=== PATIENT | female | born 1965 | race Two or more races ===

== ENCOUNTER 2018-12-24 11:59 | Inpatient (IN) | payer OTHER ==
[~2018-12-24] VITALS: Ht 165.1 cm; Wt 65.8 kg
--- NOTE | 2018-12-24 12:22 | NUR ---
PT BIB PRIVATE AMB, CAME FROM [facility] FOR ABNORMAL LABS; PT AOX0, NON-VERBAL. VENT AND TRACHE DEPENDENT, GTUBE IN PLACE, PATENT INTACT, F/C DRAINING YELLOW URINE, NAD NOTED, PENDING ER PROVIDER VILMA
[2018-12-24] MEDS ORDERED: ACETAMINOPHEN 650 MG/SUPP.RECT RC ONE ×2 (12:25→12:30)
[2018-12-24] MEDS ORDERED: MEROPENEM 1 G in IV NS 0.9% 100 ML IV ONE (12:30)
[2018-12-24] MEDS ORDERED: VANCOMYCIN 1 GM in IV D5W 250 ML IV ONE (12:30)
[2018-12-24] MEDS ORDERED: IV NS 0.9% 1,000 ML BAG IV ONE (12:30)
[2018-12-24 12:31] VITALS: BP 164/104
[2018-12-24 12:32] LABS: APPEARANCE,URINE Clear (CLEAR); BASOPHILS # (AUTO) 0.1 /CMM (0.0-0.2); BASOPHILS % (AUTO) 0.4 % (0.0-2.0); BILIRUBIN,URINE Negative (NEGATIVE); BLOOD, URINE Trace-intact Ery/uL (NEGATIVE); COLOR,URINE Yellow (YELLOW); EOSINOPHILS % (AUTO) 0.4 % (0.0-6.0); HEMOGLOBIN 9.7 g/dL (11.5-14.8); KETONES,URINE Negative (NEGATIVE); LEUKOCYTE ESTERASE ,URINE Small (NEGATIVE); NITRITE, URINE Positive (NEGATIVE); PROTEIN,URINE 30 mg/dl (NEGATIVE); UGLUCOSE Negative (NEGATIVE); UROBILINOGEN,URINE 0.2 EU/dL (0.2)
--- NOTE | 2018-12-24 12:34 | NUR ---
RT NOTE RECEIVED PT MECHANICALLY VENTILATED VIA CUFFED TRACHEOSTOMY TUBE. CUFF INFLATED. TRACH TUBE MIDLINE AND SECURE. VENTILATOR SETTINGS ENDORSED BY TRANSPORT RT AC 12 450 40% +5. ALARMS SET PER PROTOCOL AND AUDIBLE. VENT PLUGGED IN TO RED OUTLET. AMBU BAG AT BEDSIDE. NO DISTRESS NOTED AT MOMENT. Addendum: 12/24/18 at 1236 by BRUCE STOKES RT Amended: Links added.
[2018-12-24 12:35] LABS: HEMATOCRIT 29 % (33-45); LYMPHOCYTES # (AUTO) 3.4 /CMM (0.8-4.8); LYMPHOCYTES % (AUTO) 10.9 % (20.0-44.0); MEAN CORPUSCULAR HGB CONC 33 g/dl (31.0-36.0); MEAN CORPUSCULAR VOLUME 88 fL (82-100); MONOCYTES # (AUTO) 1.9 /CMM (0.1-1.30); NEUTROPHILS # (AUTO) 25.9 /CMM (1.8-8.9); NEUTROPHILS % (AUTO) 82.3 % (43.0-81.0); PLATELET COUNT (AUTO) 593 /CMM (150-450); RED BLOOD CELL COUNT(AUTO) 3.32 MIL/uL (4.0-5.2)
[2018-12-24 12:37] LABS: WHITE BLOOD COUNT (AUTO) 31.5 K/uL (4.3-11.0)
[2018-12-24 12:41] LABS: CALCIUM, SERUM 10.3 mg/dL (8.5-10.1); CARBON DIOXIDE 25 mmol/L (21-32); CHLORIDE 97 mmol/L (98-107); GLUCOSE 170 mg/dL (74-106); POTASSIUM 5.3 mmol/L (3.5-5.1); SODIUM SERUM 130 mmol/L (136-145); UREA NITROGEN, BLOOD 68 mg/dL (7-18)
[2018-12-24 12:43] LABS: BACTERIA,URINE Few /HPF (None Seen); SQUAMOUS EPITHELIAL CELL,UR Few /HPF (None Seen); WBC,URINE 50-80 /HPF (0-3)
[2018-12-24 12:47] LABS: ALANINE AMINOTRANSFERASE 25 U/L (12-78); ALBUMIN 1.6 g/dL (3.4-5.0); ALKALINE PHOSPHATASE 365 U/L (46-116); ASPARTATE AMINOTRANSFERASE 30 U/L (15-37); BILIRUBIN,DIRECT 0.2 mg/dL (0.0-0.2); BILIRUBIN,TOTAL 0.5 mg/dL (0.2-1.0); TOTAL PROTEIN, SERUM 7.3 g/dL (6.4-8.2)
[2018-12-24] MEDS ORDERED: LOSA50TA39 GT (12:49)
[2018-12-24] MEDS ORDERED: MULT-447 GT (12:49)
[2018-12-24] MEDS ORDERED: OMEP20CA10 GT (12:49)
[2018-12-24] MEDS ORDERED: BLOO-668 IN (12:49)
[2018-12-24] MEDS ORDERED: NPH,100V2 SQ (12:49)
[2018-12-24] MEDS ORDERED: HYDR-4075 GT (12:49)
[2018-12-24] MEDS ORDERED: NUT.237L30 GT (12:49)
[2018-12-24] MEDS ORDERED: CYAN-24 GT (12:49)
[2018-12-24] MEDS ORDERED: HEPA50008 SQ (12:49)
[2018-12-24] MEDS ORDERED: MAGN400O6 GT (12:49)
[2018-12-24] MEDS ORDERED: CLON1TAB GT (12:49)
[2018-12-24] MEDS ORDERED: VIT500LI GT (12:49)
[2018-12-24] MEDS ORDERED: TRAM50TA2 GT (12:49)
[2018-12-24] MEDS ORDERED: IPRA3AMP23 IH ×2 (12:49)
[2018-12-24] MEDS ORDERED: ARGI1POW13 GT (12:49)
[2018-12-24] MEDS ORDERED: INSU100V3 SQ (12:49)
[2018-12-24] MEDS ORDERED: FOLI1TAB16 GT (12:49)
[2018-12-24] MEDS ORDERED: ZINC220C8 GT (12:49)
[2018-12-24] MEDS ORDERED: FURO-144 GT (12:49)
[2018-12-24] MEDS ORDERED: NA P133E RC (12:49)
[2018-12-24] MEDS ORDERED: AMIN30LI27 GT (12:49)
[2018-12-24] MEDS ORDERED: FERR300L GT (12:49)
[2018-12-24] MEDS ORDERED: BISA10SU8 RC (12:49)
[2018-12-24] MEDS ORDERED: SACC250C GT (12:49)
[2018-12-24] MEDS ORDERED: DOCU50LI GT (12:49)
[2018-12-24] MEDS ORDERED: LEVE100S GT (12:49)
[2018-12-24] MEDS ORDERED: NPH,100I SQ (12:49)
--- NOTE | 2018-12-24 12:49 | NUR ---
GARY MOSLEY NP ON-CALL.
--- NOTE | 2018-12-24 12:58 | NUR ---
CALLED NURSING SUP. FOR TELE BED.
--- NOTE | 2018-12-24 13:09 | NUR ---
SPOKE WITH [facility]. PATIENT IS WITH [facility]. CALLED DR. REYES AND TRANSFERED TO DR. SOLANO.
--- NOTE | 2018-12-24 13:24 | NUR ---
TELE BED 111-1
[2018-12-24 13:43] LABS: BAND % (MANUAL) 4 % (0.0-5.0); LYMPHOCYTES % (MANUAL) 3 % (16-48); MONOCYTES % (MANUAL) 10 % (0-11.0); NEUTROPHILS % (MANUAL) 83 (42-76)
--- NOTE | 2018-12-24 14:03 | NUR ---
REPORT GIVEN TO TOM DIAS FOR FERNANDO
[2018-12-24] MEDS ORDERED: MAGNESIUM HYDROXIDE 30 ML UDC GT PRN (14:30)
[2018-12-24] MEDS ORDERED: NA PHOS,M-B/NA PHOS,DI-BA 1 EA ENEMA RC PRN (14:30)
[2018-12-24] MEDS ORDERED: hydrALAZINE HCL 10 MG TABLET GT PRN (14:30)
[2018-12-24] MEDS ORDERED: BISACODYL SUPP (10 MG) 10 MG/SUPP.RECT SUPP.RECT RC PRN (14:30)
[2018-12-24] MEDS ORDERED: FEE PK DOSING 1 MIN EA MC ONE (15:40)
--- NOTE | 2018-12-24 15:51 | NUR ---
TRANSFERRED TO [facility] 1ST FLOOR VIA ACLS PROTOCOL
[2018-12-24] MEDS: IV 1/2NS 1000 ML 1,000 ML IV PRN (15:52)
[2018-12-24 16:00] VITALS: BP 120/76
[2018-12-24] MEDS ORDERED: DEXTROSE 50%-WATER 50 ML DISP.SYRIN IV PRN (16:00)
--- NOTE | 2018-12-24 16:00 | NUR ---
BOAT CLEANING SUPERVISOR NOTE PATIENT CAME IN FROM THE ER VIA GURNEY, OBTUNDED. HAS A BOATENG BY GRAVITY WITH YELLOW AND CLEAR URINE. HAS A RIGHT FOREARM IV SL. INTACT FLUSHED AND PATENT. HAS GT, CLAMPED. HAS SKIN ISSUES AND WILL ORDER WOUND CONSULT. BED LOCKED AND ON LOWEST POSITION. WILL CONTINUE TO MONITOR.
[2018-12-24] MEDS: PROSOURCE / PROSTAT (PYXIS) 30 ML UDC GT SCH (16:17)
[2018-12-24] MEDS: LACTOBACILLUS RHAMNOSUS GG 1 EACH CAP.SPRINK GT SCH (16:36)
[2018-12-24] MEDS: clonazePAM 1 MG TABLET GT SCH (16:37)
[2018-12-24] MEDS: GLUCERNA 1.2 1,000 ML BOTTLE GT SCH (16:53)
[2018-12-24] MEDS ORDERED: DOCUSATE SODIUM LIQ 100 MG/10 ML UDC GT SCH (17:00)
[2018-12-24] MEDS: TRAMADOL HCL 50 MG TABLET GT SCH (17:00)
[2018-12-24] MEDS ORDERED: Medication Not On Formulary EA (Arginine/Ascorbate Sod/Vite AC (Arginaid Powder) 1 EACH) GT SCH (17:00)
[2018-12-24] MEDS: LOSARTAN POTASSIUM 50 MG TABLET GT SCH (17:03)
--- NOTE | 2018-12-24 17:23 | NUR ---
RN NOTE: CALLED AND SPOKE WITH DR. REYES AND MADE HIM AWARE THAT ON THE PATIENT'S MEDICAL RECORDS FROM [facility] SHE HAS A HISTORY OF C. DIFF ON 12/03/18. PER JAGDEEP SORTO, ORDER, NOTED AND CARRIED OUT.
[2018-12-24] MEDS: FERROUS SULFATE UDC 300 MG/5 ML UDC GT SCH (17:37)
[2018-12-24 18:16] VITALS: BP 120/76
[2018-12-24] MEDS: BLOOD SUGAR DIAGNOSTIC 1 EACH STRIP IN SCH ×2 (18:38→23:18)
[2018-12-24] MEDS: PIPERACILLIN /TAZOBACTAM 3.375 G in IV D5W 50 ML IV SCH ×2 (18:38→23:30)
[2018-12-24] MEDS: INSULIN REGULAR, HUMAN 100 UNIT/ML 3 ML VIAL SQ PRN ×2 (18:42→23:32)
[2018-12-24] MEDS ORDERED: ALBUTEROL FS 2.5 MG/0.5 ML VIAL.NEB NEB PRN (19:30)
[2018-12-24] MEDS: INSULIN NPH, HUMAN ISOPHANE 100 UNIT/ML VIAL SQ SCH (19:44)
[2018-12-24] MEDS: ALBUTEROL FS 2.5 MG/0.5 ML VIAL.NEB NEB SCH (19:58)
[2018-12-24 20:00] VITALS: BP 104/60
[2018-12-24] MEDS: VANCOMYCIN 0.75 GM in IV D5W 250 ML IV SCH (20:17)
[2018-12-24] MEDS: LEVETIRACETAM SOL (5 ML) 100 MG/ML UDC GT SCH (20:17)
[2018-12-24] MEDS: HEPARIN SODIUM, PORCINE 5000 UNITS/1 ML VIAL SQ SCH (20:18)
[2018-12-25] VITALS: BP 122/63
[2018-12-25] MEDS: ALBUTEROL FS 2.5 MG/0.5 ML VIAL.NEB NEB SCH ×4 (01:31→20:03)
[2018-12-25] MEDS: IV 1/2NS 1000 ML 1,000 ML IV PRN ×2 (03:53→16:46)
[2018-12-25 04:00] VITALS: BP 125/75
[2018-12-25] MEDS: VANCOMYCIN 0.75 GM in IV D5W 250 ML IV SCH ×2 (04:00→12:25)
[2018-12-25] MEDS: PIPERACILLIN /TAZOBACTAM 3.375 G in IV D5W 50 ML IV SCH ×3 (05:02→17:24)
[2018-12-25] MEDS: BLOOD SUGAR DIAGNOSTIC 1 EACH STRIP IN SCH ×3 (05:10→17:41)
[2018-12-25] MEDS: INSULIN NPH, HUMAN ISOPHANE 100 UNIT/ML VIAL SQ SCH ×2 (05:11→17:43)
[2018-12-25] MEDS: INSULIN REGULAR, HUMAN 100 UNIT/ML 3 ML VIAL SQ PRN (05:13)
[2018-12-25 07:16] LABS: BASOPHILS # (AUTO) 0.1 /CMM (0.0-0.2); BASOPHILS % (AUTO) 0.4 % (0.0-2.0); EOSINOPHILS % (AUTO) 1.7 % (0.0-6.0); HEMATOCRIT 23 % (33-45); HEMOGLOBIN 7.6 g/dL (11.5-14.8); LYMPHOCYTES # (AUTO) 2.9 /CMM (0.8-4.8); LYMPHOCYTES % (AUTO) 11.5 % (20.0-44.0); MEAN CORPUSCULAR HGB CONC 33 g/dl (31.0-36.0); MEAN CORPUSCULAR VOLUME 87 fL (82-100); MONOCYTES # (AUTO) 1.3 /CMM (0.1-1.30); MONOCYTES % (AUTO) 5.3 % (2.0-12.0); NEUTROPHILS # (AUTO) 20.4 /CMM (1.8-8.9); NEUTROPHILS % (AUTO) 81.1 % (43.0-81.0); PLATELET COUNT (AUTO) 458 /CMM (150-450); RED BLOOD CELL COUNT(AUTO) 2.65 MIL/uL (4.0-5.2); WHITE BLOOD COUNT (AUTO) 25.2 K/uL (4.3-11.0)
[2018-12-25 07:24] LABS: CALCIUM, SERUM 9.1 mg/dL (8.5-10.1); CREATININE 0.9 mg/dL (0.6-1.3)
[2018-12-25 07:30] LABS: BILIRUBIN,TOTAL 0.3 mg/dL (0.2-1.0); TOTAL PROTEIN, SERUM 5.9 g/dL (6.4-8.2)
[2018-12-25] MEDS ORDERED: PANTOPRAZOLE 40 MG TABLET.DR PO SCH (07:30)
--- NOTE | 2018-12-25 07:30 | NUR ---
RN OPENING NOTES RECEIVED PATIENT ON BED OBTUNDED. ON GT 55ML/HR. NO RESIDUAL. ON IV FLUIDS. INTACT PATENT AND SALINE FLUSHED. ON BOATENG GRAVITY. WITH CLEAR AND YELLOW URINE. PT ON VENT SATING 100% NO SIGNS OF ANY DISCOMFORT. BED LOCKED AND LOWEST POSITION. WILL CONT TO MONITOR.
[2018-12-25 07:32] LABS: ALBUMIN 1.3 g/dL (3.4-5.0)
--- NOTE | 2018-12-25 07:55 | NUR ---
RT PT RECEIVED WITH A [employer] 8 TRACH ON THE VENT WITH NOTED SETTINGS. PT IS AWAKE BUT DOES NOT FOLLOW COMMANDS. VENT ALARMS ARE SET AND AUDIBLE WITH BVM BY BEDSIDE. MAINTENANCE SPECIALIST CUFF PRESSURE NOTED. VENT IS PLUGGED INTO RED OUTLET. SX'D MODERATE THICK YELLOW SECRETIONS. NO RESPIRATORY DISTRESS NOTED AT THIS TIME, WILL CONTINUE TO MONITOR. Addendum: 12/25/18 at 1803 by TE BERNAL RT Amended: Links added.
[2018-12-25 08:00] VITALS: BP 105/60
[2018-12-25] MEDS: ZINC SULFATE 220 MG CAPSULE GT SCH (08:58)
[2018-12-25] MEDS: FOLIC ACID 1 MG TABLET GT SCH (08:59)
[2018-12-25] MEDS: MULTIVIT W/MINERALS 1 TAB TABLET GT SCH (08:59)
[2018-12-25] MEDS: LACTOBACILLUS RHAMNOSUS GG 1 EACH CAP.SPRINK GT SCH ×2 (08:59→16:21)
[2018-12-25] MEDS: clonazePAM 1 MG TABLET GT SCH ×3 (09:00→16:22)
[2018-12-25] MEDS: LOSARTAN POTASSIUM 50 MG TABLET GT SCH ×2 (09:00→16:22)
[2018-12-25] MEDS: TRAMADOL HCL 50 MG TABLET GT SCH ×3 (09:01→16:24)
[2018-12-25] MEDS: ASCORBIC ACID 500 MG TABLET GT SCH (09:01)
[2018-12-25] MEDS: CYANOCOBALAMIN 500 MCG TABLET GT SCH (09:01)
[2018-12-25] MEDS: FERROUS SULFATE UDC 300 MG/5 ML UDC GT SCH ×3 (09:02→16:21)
[2018-12-25] MEDS: LEVETIRACETAM SOL (5 ML) 100 MG/ML UDC GT SCH ×2 (09:02→20:33)
[2018-12-25] MEDS: HEPARIN SODIUM, PORCINE 5000 UNITS/1 ML VIAL SQ SCH ×2 (09:14→20:34)
--- NOTE | 2018-12-25 09:20 | NUR ---
WOUND CARE CONSULT: PT INCONTINENT OF LARGE AMOUNT OF LIQUID MALODOROUS STOOL, PRESENT ON ADMISSION. PT ALSO NOTED TO HAVE MULTIPLE WOUNDS AND SKIN ISSUES, PRESENT ON ADMISSION INCLUDING UNSTAGEABLE SACRAL ULCER, LEFT EAR DRY ESCHAR, RT EAR SCAR, LEFT HEEL SCAR, RT HEEL INTACT DEEP TISSUE INJURY AND LEFT LATERAL LOWER LEG INTACT DEEP TISSUE INJURY. RECOMMEND SURGICAL CONSULT FOR SACRAL ULCER. RECOMMENDATIONS MADE FOR WOUND CARE AND SKIN PROTECTION. DISCUSSED WITH NURSING STAFF. PT ON [facility] LOW AIRLOSS BED. WILL SEE PRN. SORTO IN AGREEMENT WITH PLAN OF CARE. CURRENT CHUCKY SCORE IS 9. PT IS VENT-DEPENDENT. Addendum: 12/25/18 at 0923 by JOYCELYN SKELTON WNDNU Amended: Links added.
[2018-12-25] MEDS ORDERED: Z GUARD REMEDY 2 OZ OINT TP PRN (09:30)
[2018-12-25] MEDS: PROSOURCE / PROSTAT (PYXIS) 30 ML UDC GT SCH (10:30)
--- NOTE | 2018-12-25 10:44 | NUR ---
RN NOTE: CLARIFIED WITH DR. REYES RE: THE PROTONIX ORDER. MD WITH NEW ORDER, NOTED AND CARRIED OUT.
[2018-12-25] MEDS: PANTOPRAZOLE 40 MG/PACK PACK GT SCH (11:04)
[2018-12-25 12:00] VITALS: BP 136/76
--- NOTE | 2018-12-25 12:20 | NUR ---
RN NOTE: CALLED AND SPOKE WITH YULIANA FROM THE PHARMACY AND MADE HER AWARE OF THE VANCOMYCIN TROUGH 35. PER YULIANA, HOLD THE DOSE FOR 1300 AND SHE WILL INFORM [facility], PHARMACIST RE: THE PATIENT'S VANCOMYCIN TROUGH.
[2018-12-25] MEDS: DAKINS QUARTER STRENGTH (0.125%) 480 ML BOTTLE TOP SCH (14:07)
[2018-12-25] MEDS: Z GUARD REMEDY 2 OZ OINT TP SCH (14:08)
[2018-12-25 16:00] VITALS: BP 103/56
[2018-12-25] MEDS: VANCOMYCIN HCL 125 MG/2.5 ML ORAL.SUSP GT SCH ×2 (17:45→18:55)
--- NOTE | 2018-12-25 17:45 | NUR ---
RN NOTE: RECEIVED AN ORDER FROM DR. REYES FOR VANCOMYCIN 125 MG GT Q6HR FOR C. DIFF. ORDER, NOTED AND CARRIED OUT. DAUGHTER MADE AWARE.
--- NOTE | 2018-12-25 17:55 | NUR ---
RN NOTE: INFORMED DR. REYES RE: THE SLIGHT RECTAL BLEEDING NOTED ON THE PATIENT. MD WAS ALSO INFORMED OF THE HEMOGLOBIN 7.6 TODAY. PER MD, CONTINUE TO MONITOR AND HE WAS AWARE OF THE HGB THIS MORNING.
[2018-12-25] MEDS: GLUCERNA 1.2 1,000 ML BOTTLE GT SCH (18:42)
--- NOTE | 2018-12-25 19:14 | NUR ---
RN CLOSING NOTE PATIENT ON BED OBTUNDED. ON GT 55ML/HR. NO RESIDUAL. ON IV FLUIDS. INTACT PATENT AND SALINE FLUSHED. ON BOATENG BY GRAVITY. WITH CLEAR AND YELLOW URINE. PT ON VENT SATING 100% NO SIGNS OF ANY DISCOMFORT. INSERTED A RECTAL TUBE DUE TO POSITIVE C DIFF. BED LOCKED AND LOWEST POSITION. WILL CONT TO MONITOR Addendum: 12/25/18 at 1915 by GISELLA WOODS RN BLOOD SUGAR WAS MANAGEABLE THROUGHOUT THE SHIFT. WILL RELAY REPORT TO THE NOC SHIFT
[2018-12-25 20:00] VITALS: BP 140/77
--- NOTE | 2018-12-25 20:00 | NUR ---
RN/TELE NOTES: RECEIVED PT. IN BED W/HOB ELEVATED. OBTUNDED. ON VENT/TRACH DEPENDENT. ON TELE MONITOR W/ ST. W/ GTF INPLACE AND PATENT TOLERATING WELL. NO RESIDUAL NOTED. IVF GOING ON RT. AC PATENT AND INTACT W/ NO S/S OF INFECTION/INFILTRATION NOTED. VANCO TROUGH 31. HELD VANCO DOSE. NO S/S OF FACIAL GRIMACES OR MOANING NOTED. BED LOCKED AND IN LOW POSITION. WILL CONTINUE TO MONITOR. F/C PATENT AND INTACT DRAINING VIA GRAVITY. HAS FLEXISEAL INTACT.
[2018-12-25] MEDS ORDERED: VANCOMYCIN 0.75 GM in IV D5W 250 ML IV SCH (21:00)
[2018-12-25] MEDS: METOPROLOL SUCCINATE 25 MG TAB.SR.24H GT SCH (22:07)
--- NOTE | 2018-12-25 23:36 | NUR ---
RN/TELE NOTES: CALLED DR. REYES REGARDING PT. HEART RATE. W/ NEW ORDERS NOTED AND CARRIED OUT. ALSO CLARIFIED W/ DR. REYES OF VANCO IV AND PO PER DR. REYES CONTINUE BOTH. VANCO TROUGH LEVEL 31. HELD VANCO IV. CHARGE NURSE INFORMED. WILL CONTINUE TO MONITOR.
[2018-12-26] VITALS: BP 134/77
[2018-12-26] MEDS: PIPERACILLIN /TAZOBACTAM 3.375 G in IV D5W 50 ML IV SCH ×2 (00:15→05:40)
[2018-12-26] MEDS: HYDROCODONE/APAP 5/325MG 1 EACH TABLET GT PRN ×2 (00:15→06:24)
[2018-12-26] MEDS: VANCOMYCIN HCL 125 MG/2.5 ML ORAL.SUSP GT SCH ×2 (00:16→05:39)
[2018-12-26] MEDS: BLOOD SUGAR DIAGNOSTIC 1 EACH STRIP IN SCH ×4 (00:26→17:41)
[2018-12-26] MEDS: INSULIN REGULAR, HUMAN 100 UNIT/ML 3 ML VIAL SQ PRN ×2 (00:31→05:35)
[2018-12-26] MEDS: ALBUTEROL FS 2.5 MG/0.5 ML VIAL.NEB NEB SCH ×4 (02:28→19:42)
[2018-12-26 04:00] VITALS: BP 157/78
[2018-12-26] MEDS: IV 1/2NS 1000 ML 1,000 ML IV PRN ×2 (04:45→20:17)
[2018-12-26] MEDS: INSULIN NPH, HUMAN ISOPHANE 100 UNIT/ML VIAL SQ SCH ×2 (05:38→17:50)
[2018-12-26 07:15] LABS: BASOPHILS # (AUTO) 0.1 /CMM (0.0-0.2); BASOPHILS % (AUTO) 0.3 % (0.0-2.0); EOSINOPHILS % (AUTO) 0.6 % (0.0-6.0); HEMATOCRIT 30 % (33-45); LYMPHOCYTES # (AUTO) 4.5 /CMM (0.8-4.8); LYMPHOCYTES % (AUTO) 11.2 % (20.0-44.0); MEAN CORPUSCULAR HGB CONC 33 g/dl (31.0-36.0); MEAN CORPUSCULAR VOLUME 89 fL (82-100); MONOCYTES # (AUTO) 2.1 /CMM (0.1-1.30); MONOCYTES % (AUTO) 5.2 % (2.0-12.0); NEUTROPHILS # (AUTO) 33.2 /CMM (1.8-8.9); NEUTROPHILS % (AUTO) 82.7 % (43.0-81.0); PLATELET COUNT (AUTO) 595 /CMM (150-450)
[2018-12-26 07:27] LABS: CALCIUM, SERUM 9.6 mg/dL (8.5-10.1); CREATININE 0.9 mg/dL (0.6-1.3); POTASSIUM 5.1 mmol/L (3.5-5.1)
--- NOTE | 2018-12-26 07:28 | NUR ---
RN/TELE NOTES: REPORT GIVEN TO NEXT SHIFT NURSE FOR FERNANDO.
--- NOTE | 2018-12-26 07:47 | NUR ---
RT Pt received with a shiley 8 trach on the vent with noted settings. Pt is awake but does not follow commands. Vent is plugged into red outlet. WARP COILER cuff pressure noted. Vent alarms are set and audible with BVM by bedside. HHN tx not given do to tachycardia, TOM Villavicencio notified and aware. Pt sx'd moderate thick pale yellow secretions. No respiratory distress noted at this time, will continue to monitor. Addendum: 12/26/18 at 0836 by TE BERNAL RT Amended: Links added.
[2018-12-26 08:00] VITALS: BP 169/84
[2018-12-26 08:04] LABS: WHITE BLOOD COUNT (AUTO) 40.1 K/uL (4.3-11.0)
--- NOTE | 2018-12-26 08:05 | NUR ---
RN NOTE GOT CALL FROM LAB ABOUT WBC=40.0, DR REYES AT BEDSIDE NOTIFIED ABOUT WBC LEVEL. HE WILL CHECK THE CHART ANF FOLLOW UP.
[2018-12-26 08:42] LABS: BAND % (MANUAL) 1 % (0.0-5.0); LYMPHOCYTES % (MANUAL) 18 % (16-48); MONOCYTES % (MANUAL) 4 % (0-11.0); NEUTROPHILS % (MANUAL) 77 (42-76)
[2018-12-26] MEDS: clonazePAM 1 MG TABLET GT SCH ×3 (08:59→16:33)
[2018-12-26] MEDS: MULTIVIT W/MINERALS 1 TAB TABLET GT SCH (08:59)
[2018-12-26] MEDS: FOLIC ACID 1 MG TABLET GT SCH (08:59)
[2018-12-26] MEDS: LACTOBACILLUS RHAMNOSUS GG 1 EACH CAP.SPRINK GT SCH ×2 (08:59→16:33)
[2018-12-26] MEDS: CYANOCOBALAMIN 500 MCG TABLET GT SCH (08:59)
[2018-12-26] MEDS: LEVETIRACETAM SOL (5 ML) 100 MG/ML UDC GT SCH ×2 (08:59→20:19)
[2018-12-26] MEDS ORDERED: CEFTRIAXONE 1 G in IV D5W 50 ML IV SCH (09:00)
[2018-12-26] MEDS: METOPROLOL SUCCINATE 25 MG TAB.SR.24H GT SCH ×2 (09:00→16:34)
[2018-12-26] MEDS: LOSARTAN POTASSIUM 50 MG TABLET GT SCH ×2 (09:05→16:37)
[2018-12-26] MEDS: ASCORBIC ACID 500 MG TABLET GT SCH (09:05)
[2018-12-26] MEDS: ZINC SULFATE 220 MG CAPSULE GT SCH (09:05)
[2018-12-26] MEDS: PANTOPRAZOLE 40 MG/PACK PACK GT SCH (09:05)
[2018-12-26] MEDS: FERROUS SULFATE UDC 300 MG/5 ML UDC GT SCH ×3 (09:05→16:33)
[2018-12-26] MEDS: HEPARIN SODIUM, PORCINE 5000 UNITS/1 ML VIAL SQ SCH ×2 (09:06→20:21)
[2018-12-26] MEDS: TRAMADOL HCL 50 MG TABLET GT SCH ×3 (09:07→16:35)
[2018-12-26] MEDS: PROSOURCE / PROSTAT (PYXIS) 30 ML UDC GT SCH (09:08)
[2018-12-26] MEDS: Z GUARD REMEDY 2 OZ OINT TP SCH (09:09)
[2018-12-26] MEDS: DAKINS QUARTER STRENGTH (0.125%) 480 ML BOTTLE TOP SCH (09:09)
[2018-12-26 12:00] VITALS: BP 168/85
[2018-12-26] MEDS: ACETAMINOPHEN 650 MG/20.3 ML UDC NG PRN ×2 (12:07→19:20)
--- NOTE | 2018-12-26 13:20 | NUR ---
RT HHN tx not given due to tachycardia, TOM Villavicencio notified and aware. No signs of SOB or respiratory distress noted at this time. Addendum: 12/26/18 at 1459 by TE BERNAL RT Amended: Links added.
[2018-12-26 16:00] VITALS: BP 113/61
[2018-12-26] MEDS: VANCOMYCIN HCL 125 MG/2.5 ML ORAL.SUSP PO SCH (17:41)
[2018-12-26] MEDS: GLUCERNA 1.2 1,000 ML BOTTLE GT SCH (17:59)
[2018-12-26 20:00] VITALS: BP 124/58
--- NOTE | 2018-12-26 20:00 | NUR ---
RN/TELE NOTES: RECEIVED PT. IN BED W/HOB ELEVATED. OBTUNDED. ON VENT/TRACH DEPENDENT. ON TELE MONITOR W/ SR. W/ GTF INPLACE AND PATENT TOLERATING WELL. NO RESIDUAL NOTED. IVF GOING ON LEFT ARM PATENT AND INTACT W/ NO S/S OF INFECTION/INFILTRATION NOTED. VANCO TROUGH DONE AT 2029. WAITING FOR RESULTS. NO S/S OF FACIAL GRIMACES OR MOANING NOTED. BED LOCKED AND IN LOW POSITION. WILL CONTINUE TO MONITOR. F/C PATENT AND INTACT DRAINING VIA GRAVITY. HAS FLEXISEAL INTACT.
--- NOTE | 2018-12-26 22:44 | NUR ---
RN/TELE NOTES: CALLED DR. REYES AT [phone] TO CLARIFY THE ORDERS OF JEANO IV. VANCO TROUGH WAS DONE TODAY AT 2029. PER DR. REYES VANCO IV WAS D/C .
[2018-12-27] VITALS (7 sets, daily range): BP systolic 76–140; BP diastolic 41–79
[2018-12-27] MEDS: BLOOD SUGAR DIAGNOSTIC 1 EACH STRIP IN SCH ×5 (00:49→23:16)
[2018-12-27] MEDS: VANCOMYCIN HCL 125 MG/2.5 ML ORAL.SUSP PO SCH ×5 (00:49→23:18)
[2018-12-27] MEDS: INSULIN REGULAR, HUMAN 100 UNIT/ML 3 ML VIAL SQ PRN ×2 (00:51→12:54)
[2018-12-27] MEDS: ALBUTEROL FS 2.5 MG/0.5 ML VIAL.NEB NEB SCH ×4 (01:21→20:13)
--- NOTE | 2018-12-27 07:05 | NUR ---
RN NOTES: RECEIVED PT ON BED, VENT/TRACH DEPENDENT, TRACH CARE DONE, NO SOB NOTED, TOLERATING CURRENT VENT SETTING WELL, ON TELE SR HR IN 70'S, BOATENG DRAINING TO GRAVITY , FLEXISEAL INTACT AND DRAINING LOOSE STOOL, GLUCERNA AT 55CC/HR RUNNING VIA GT , NO RESIDUAL NOTED, 1/2 NS AT 100CC/HR RUNNING VIA L UPPER ARM MIDLINE , SITE CELAN , DRY AND INTACT, BED LOCKED AND IN LOW POSITION. SR UP x3, CALL LIGHT WITHIN EASY REACH, CONTINUE TO MONITOR .
--- NOTE | 2018-12-27 07:22 | NUR ---
RN/TELE NOTES: BP AT 4 AM 76/41. CALLED DR. REYES X 2 W/ ORDERS TO BOLUS 1 L NS AND IF NOT IMPROVED TO TRANSFER TO ICU. BP 88/43. RECHECK BP 95/49. BP 116/61. PT. IS ON GLUCERNA @ 55 ML/HR. W/ I/2 NS @ 100 ML/HR. NOT IN ANY DISTRESS. REPORT GIVEN TO AM NURSE.
[2018-12-27 07:24] LABS: BASOPHILS # (AUTO) 0.1 /CMM (0.0-0.2); BASOPHILS % (AUTO) 0.1 % (0.0-2.0); CALCIUM, SERUM 8.9 mg/dL (8.5-10.1); CREATININE 1.1 mg/dL (0.6-1.3); EOSINOPHILS % (AUTO) 0.1 % (0.0-6.0); HEMATOCRIT 23 % (33-45); HEMOGLOBIN 7.7 g/dL (11.5-14.8); LYMPHOCYTES # (AUTO) 2.5 /CMM (0.8-4.8); LYMPHOCYTES % (AUTO) 4.8 % (20.0-44.0); MEAN CORPUSCULAR HGB CONC 33 g/dl (31.0-36.0); MEAN CORPUSCULAR VOLUME 88 fL (82-100); MONOCYTES # (AUTO) 1.7 /CMM (0.1-1.30); MONOCYTES % (AUTO) 3.3 % (2.0-12.0); NEUTROPHILS # (AUTO) 47.2 /CMM (1.8-8.9); NEUTROPHILS % (AUTO) 91.7 % (43.0-81.0); PLATELET COUNT (AUTO) 481 /CMM (150-450); POTASSIUM 4.6 mmol/L (3.5-5.1); RED BLOOD CELL COUNT(AUTO) 2.64 MIL/uL (4.0-5.2)
[2018-12-27 07:35] LABS: WHITE BLOOD COUNT (AUTO) 51.5 K/uL (4.3-11.0)
[2018-12-27] MEDS: FERROUS SULFATE UDC 300 MG/5 ML UDC GT SCH ×3 (08:46→16:39)
[2018-12-27] MEDS: ZINC SULFATE 220 MG CAPSULE GT SCH (08:46)
[2018-12-27] MEDS: LEVETIRACETAM SOL (5 ML) 100 MG/ML UDC GT SCH ×2 (08:46→20:27)
[2018-12-27] MEDS: CYANOCOBALAMIN 500 MCG TABLET GT SCH (08:47)
[2018-12-27] MEDS: METOPROLOL SUCCINATE 25 MG TAB.SR.24H GT SCH ×2 (08:47→16:51)
[2018-12-27] MEDS: FOLIC ACID 1 MG TABLET GT SCH (08:47)
[2018-12-27] MEDS: PANTOPRAZOLE 40 MG/PACK PACK GT SCH (08:48)
[2018-12-27] MEDS: ASCORBIC ACID 500 MG TABLET GT SCH (08:48)
[2018-12-27] MEDS: LACTOBACILLUS RHAMNOSUS GG 1 EACH CAP.SPRINK GT SCH ×2 (08:48→16:39)
[2018-12-27] MEDS: clonazePAM 1 MG TABLET GT SCH ×3 (08:48→16:39)
[2018-12-27] MEDS: TRAMADOL HCL 50 MG TABLET GT SCH ×3 (08:48→16:40)
[2018-12-27] MEDS: MULTIVIT W/MINERALS 1 TAB TABLET GT SCH (08:48)
[2018-12-27] MEDS: HEPARIN SODIUM, PORCINE 5000 UNITS/1 ML VIAL SQ SCH ×2 (08:49→20:29)
[2018-12-27 08:52] LABS: BAND % (MANUAL) 8 % (0.0-5.0); EOSINOPHILS % (MANUAL) 1 % (0-4); LYMPHOCYTES % (MANUAL) 4 % (16-48); MONOCYTES % (MANUAL) 4 % (0-11.0); NEUTROPHILS % (MANUAL) 83 (42-76)
[2018-12-27] MEDS: LOSARTAN POTASSIUM 50 MG TABLET GT SCH (08:53)
[2018-12-27] MEDS: INSULIN NPH, HUMAN ISOPHANE 100 UNIT/ML VIAL SQ SCH ×2 (08:54→17:08)
[2018-12-27] MEDS: PROSOURCE / PROSTAT (PYXIS) 30 ML UDC GT SCH (08:55)
[2018-12-27] MEDS: DAKINS QUARTER STRENGTH (0.125%) 480 ML BOTTLE TOP SCH (09:02)
[2018-12-27] MEDS: Z GUARD REMEDY 2 OZ OINT TP SCH (09:03)
[2018-12-27] MEDS ORDERED: DOSING PER PHARMACY-AMIKACI IV XX PRN (15:00)
[2018-12-27] MEDS ORDERED: FEE PK DOSING 1 MIN EA MC ONE (15:12)
[2018-12-27] MEDS: METRONIDAZOLE 500MG/ NS 100ML 500 MG in PREMIX 1 EA IV SCH ×2 (15:37→23:06)
[2018-12-27] MEDS: AMIKACIN 400 MG in IV D5W 100 ML IV SCH (16:35)
[2018-12-27] MEDS: IV 1/2NS 1000 ML 1,000 ML IV PRN (16:55)
--- NOTE | 2018-12-27 18:00 | NUR ---
RN NOTES PT STABLE, NO SIGNIFICANT CHANGES NOTED ON THIS SHIFT , WILL ENDOSE TO SUPERVISOR WET ROOM NURSE FOR CONTINUITY OF CARE
[2018-12-28] VITALS (15 sets, daily range): BP systolic 92–135; BP diastolic 44–72
[2018-12-28] MEDS: ALBUTEROL FS 2.5 MG/0.5 ML VIAL.NEB NEB SCH ×4 (01:39→19:17)
[2018-12-28] MEDS: GLUCERNA 1.2 1,000 ML BOTTLE GT SCH (04:42)
[2018-12-28] MEDS: BLOOD SUGAR DIAGNOSTIC 1 EACH STRIP IN SCH ×3 (05:41→17:48)
[2018-12-28] MEDS: VANCOMYCIN HCL 125 MG/2.5 ML ORAL.SUSP PO SCH ×3 (05:54→17:41)
[2018-12-28] MEDS: INSULIN NPH, HUMAN ISOPHANE 100 UNIT/ML VIAL SQ SCH ×2 (05:56→17:47)
[2018-12-28] MEDS: INSULIN REGULAR, HUMAN 100 UNIT/ML 3 ML VIAL SQ PRN (05:57)
[2018-12-28] MEDS: IV 1/2NS 1000 ML 1,000 ML IV PRN (05:58)
[2018-12-28] MEDS: METRONIDAZOLE 500MG/ NS 100ML 500 MG in PREMIX 1 EA IV SCH ×2 (06:00→15:43)
--- NOTE | 2018-12-28 07:05 | NUR ---
RN NOTES: RECEIVED PT ON BED, VENT/TRACH DEPENDENT, NO SOB NOTED, TOLERATING CURRENT VENT SETTING WELL, ON TELE SR HR IN 60'S, BOATENG DRAINING TO GRAVITY , FLEXISEAL INTACT AND DRAINING LOOSE STOOL, GLUCERNA AT 55CC/HR RUNNING VIA GT , NO RESIDUAL NOTED, 1/2 NS AT 100CC/HR RUNNING VIA L UPPER ARM MIDLINE , SITE CELAN , DRY AND INTACT, BED LOCKED AND IN LOW POSITION. SR UP x3, CALL LIGHT WITHIN EASY REACH, CONTINUE TO MONITOR .
[2018-12-28 07:08] LABS: BASOPHILS # (AUTO) 0.1 /CMM (0.0-0.2); BASOPHILS % (AUTO) 0.3 % (0.0-2.0); EOSINOPHILS % (AUTO) 0.4 % (0.0-6.0); LYMPHOCYTES # (AUTO) 3.2 /CMM (0.8-4.8); LYMPHOCYTES % (AUTO) 7.5 % (20.0-44.0); MEAN CORPUSCULAR HGB CONC 33 g/dl (31.0-36.0); MEAN CORPUSCULAR VOLUME 89 fL (82-100); MONOCYTES # (AUTO) 1.5 /CMM (0.1-1.30); MONOCYTES % (AUTO) 3.5 % (2.0-12.0); NEUTROPHILS % (AUTO) 88.3 % (43.0-81.0); PLATELET COUNT (AUTO) 426 /CMM (150-450); RED BLOOD CELL COUNT(AUTO) 2.19 MIL/uL (4.0-5.2)
[2018-12-28 07:14] LABS: CALCIUM, SERUM 8.4 mg/dL (8.5-10.1); CREATININE 1.1 mg/dL (0.6-1.3); POTASSIUM 4.1 mmol/L (3.5-5.1)
[2018-12-28 07:17] LABS: WHITE BLOOD COUNT (AUTO) 43.1 K/uL (4.3-11.0)
[2018-12-28 07:18] LABS: HEMATOCRIT 19 % (33-45); HEMOGLOBIN 6.3 g/dL (11.5-14.8)
--- NOTE | 2018-12-28 08:00 | NUR ---
RN NOTES DR REYES NOTIFED REGARDING H/H 6.3 , NEW ORDER RECEIVED TO TRANSFUSE ONE UNIT OF PRBC. VSS STABLE , CONTINUE TO MONITOR .
[2018-12-28 08:28] LABS: LYMPHOCYTES % (MANUAL) 3 % (16-48); MONOCYTES % (MANUAL) 3 % (0-11.0); NEUTROPHILS % (MANUAL) 94 (42-76)
[2018-12-28] MEDS: FOLIC ACID 1 MG TABLET GT SCH (08:46)
[2018-12-28] MEDS: ZINC SULFATE 220 MG CAPSULE GT SCH (08:46)
[2018-12-28] MEDS: FERROUS SULFATE UDC 300 MG/5 ML UDC GT SCH ×3 (08:46→17:41)
[2018-12-28] MEDS: MULTIVIT W/MINERALS 1 TAB TABLET GT SCH (08:46)
[2018-12-28] MEDS: LEVETIRACETAM SOL (5 ML) 100 MG/ML UDC GT SCH ×2 (08:46→21:43)
[2018-12-28] MEDS: CYANOCOBALAMIN 500 MCG TABLET GT SCH (08:46)
[2018-12-28] MEDS: clonazePAM 1 MG TABLET GT SCH ×3 (08:47→17:41)
[2018-12-28] MEDS: LACTOBACILLUS RHAMNOSUS GG 1 EACH CAP.SPRINK GT SCH ×2 (08:47→17:41)
[2018-12-28] MEDS: ASCORBIC ACID 500 MG TABLET GT SCH (08:47)
[2018-12-28] MEDS: TRAMADOL HCL 50 MG TABLET GT SCH ×3 (08:47→17:42)
[2018-12-28] MEDS: METOPROLOL SUCCINATE 25 MG TAB.SR.24H GT SCH ×2 (08:48→17:42)
[2018-12-28] MEDS: LOSARTAN POTASSIUM 50 MG TABLET GT SCH (08:49)
[2018-12-28] MEDS: PANTOPRAZOLE 40 MG/PACK PACK GT SCH ×2 (08:52→17:41)
[2018-12-28] MEDS: PROSOURCE / PROSTAT (PYXIS) 30 ML UDC GT SCH (08:52)
[2018-12-28] MEDS: Z GUARD REMEDY 2 OZ OINT TP SCH (08:54)
[2018-12-28] MEDS: DAKINS QUARTER STRENGTH (0.125%) 480 ML BOTTLE TOP SCH (08:54)
--- NOTE | 2018-12-28 09:11 | NUR ---
[facility]. NO RESP DISTRESS OR SOB NOTED. SX'D FOR THICK MOD AMT OF PALE YELLOW SECRETIONS. TRACH PATENT AND SECURED. ALARMS ARE SET AND AUDIBLE. VENT PLUGGED INTO RED OUTLET. AMBU BAG BEDSIDE WILL CONTINUE TO MONITOR. Addendum: 12/28/18 at 0913 by NNAMDI SULLIVAN RT Amended: Links added.
[2018-12-28] MEDS: AMIKACIN 400 MG in IV D5W 100 ML IV SCH (09:50)
[2018-12-28] MEDS: ACETAMINOPHEN 650 MG/20.3 ML UDC NG PRN (15:42)
--- NOTE | 2018-12-28 18:00 | NUR ---
RN NOTES PT STABLE, NO SIGNIFICANT CHANGES NOTED , TOLERATING TF WELL, NO RESIDUAL NOTED, 1/2 NS AT 50CC/HR RUNNING VIA L ARM MIDLINE , WILL ENDOSE TO CARRIER OPERATOR NURSE FOR CONTINUITY OF CARE .
[2018-12-28 19:30] LABS: MEAN CORPUSCULAR VOLUME 88 fL (82-100); NEUTROPHILS # (AUTO) 28.4 /CMM (1.8-8.9)
[2018-12-28 19:37] LABS: BASOPHILS # (AUTO) 0.1 /CMM (0.0-0.2); BASOPHILS % (AUTO) 0.3 % (0.0-2.0); EOSINOPHILS % (AUTO) 0.7 % (0.0-6.0); HEMATOCRIT 23 % (33-45); HEMOGLOBIN 7.7 g/dL (11.5-14.8); LYMPHOCYTES # (AUTO) 2.3 /CMM (0.8-4.8); LYMPHOCYTES % (AUTO) 7.3 % (20.0-44.0); MEAN CORPUSCULAR HGB CONC 33 g/dl (31.0-36.0); MONOCYTES # (AUTO) 1.2 /CMM (0.1-1.30); MONOCYTES % (AUTO) 3.7 % (2.0-12.0); PLATELET COUNT (AUTO) 425 /CMM (150-450); RED BLOOD CELL COUNT(AUTO) 2.66 MIL/uL (4.0-5.2)
[2018-12-28 20:07] LABS: WHITE BLOOD COUNT (AUTO) 32.3 K/uL (4.3-11.0)
[2018-12-28 20:09] LABS: BAND % (MANUAL) 1 % (0.0-5.0); LYMPHOCYTES % (MANUAL) 6 % (16-48); NEUTROPHILS % (MANUAL) 90 (42-76)
[2018-12-28 20:10] LABS: MONOCYTES % (MANUAL) 3 % (0-11.0)
--- NOTE | 2018-12-28 20:20 | NUR ---
RN NOTES CALLED MD ERIC BARRERA ABOUT PATIENTS' H/H 7.06/11 AND NEW ORDER TO TRANSFUSE ONE MORE UNIT OF PRBC IS IN PLACE. WILL CONTINUE TO MONITOR PT.
--- NOTE | 2018-12-28 21:34 | NUR ---
RES NOTE Addendum: 12/28/18 at 2136 by THEE LILLY RT Amended: Links added.
--- NOTE | 2018-12-28 21:35 | NUR ---
RT NOTE PT RECEIVED ON [facility] VENT ON THE FOLLOWING NOTED SETTINGS. NO RESP DISTRESS OR SOB NOTED. PT HAD VERY SMALL CLEAR SECRETIONS WHEN SUCTIONED. BREATHING TX GIVEN, NO ADVERSE REACTIONS NOTED. VENT IS PLUGGED INTO RED OUTLET. AMBU BAG IS AT BEDSIDE. ALARMS ARE ON AND AUDIBLE. WILL CONT TO MONITOR PT. Addendum: 12/28/18 at 2136 by THEE LILLY RT Amended: Links added.
--- NOTE | 2018-12-28 22:20 | NUR ---
RN NOTES 1 UNIT OF PRBC TRANSFUSION STARTED MD ORDERED. NO ALLERGIC REACTION NOTED AT THIS TIME, NO SOB, V/S ARE WNL. WILL CONTINUE TO MONITOR PATIENT.
[2018-12-29] VITALS (7 sets, daily range): BP systolic 109–135; BP diastolic 59–71
[2018-12-29] MEDS: BLOOD SUGAR DIAGNOSTIC 1 EACH STRIP IN SCH ×4 (00:21→18:50)
[2018-12-29] MEDS: VANCOMYCIN HCL 125 MG/2.5 ML ORAL.SUSP PO SCH ×4 (00:22→18:51)
[2018-12-29] MEDS: METRONIDAZOLE 500MG/ NS 100ML 500 MG in PREMIX 1 EA IV SCH ×3 (00:30→14:12)
--- NOTE | 2018-12-29 00:30 | NUR ---
RN NOTES 1 UNIT OF PRBC HAS BEEN DONR WITHOUT ANY ALLERGIC REACTIONS NOTED AT THIS TIME AND DURING TRANSFUSION, NO SOB, V/S ARE WNL. WILL CONTINUE TO MONITOR PATIENT CLOSELY.
--- NOTE | 2018-12-29 00:41 | NUR ---
RN NOTES: RECEIVED PT ON BED, VENT/TRACH DEPENDENT, TRACH CARE DONE, NO SOB NOTED, TOLERATING CURRENT VENT SETTING WELL, ON TELE SR HR IN 70'S, BOATENG DRAINING TO GRAVITY , FLEXISEAL INTACT AND DRAINING LOOSE STOOL, GLUCERNA AT 55CC/HR RUNNING VIA GT , NO RESIDUAL NOTED, 1/2 NS RUNNING ORDERED VIA L UPPER ARM MIDLINE , SITE CELAN , DRY AND INTACT, BED LOCKED AND IN LOW POSITION. SR UP x2, CALL LIGHT WITHIN EASY REACH, WILL CONTINUE TO MONITOR .
[2018-12-29] MEDS: ALBUTEROL FS 2.5 MG/0.5 ML VIAL.NEB NEB SCH ×4 (01:26→19:29)
[2018-12-29] MEDS ORDERED: AMIKACIN 500 MG in IV D5W 100 ML IV SCH (04:00)
[2018-12-29] MEDS ORDERED: AMIKACIN 400 MG in IV D5W 100 ML IV SCH (04:28)
[2018-12-29] MEDS: AMIKACIN 400 MG in IV D5W 100 ML IV SCH (04:35)
[2018-12-29] MEDS: IV 1/2NS 1000 ML 1,000 ML IV PRN (05:30)
[2018-12-29] MEDS: GLUCERNA 1.2 1,000 ML BOTTLE GT SCH (05:39)
[2018-12-29 06:01] LABS: BASOPHILS # (AUTO) 0.1 /CMM (0.0-0.2); BASOPHILS % (AUTO) 0.3 % (0.0-2.0); EOSINOPHILS % (AUTO) 0.5 % (0.0-6.0); HEMATOCRIT 30 % (33-45); HEMOGLOBIN 10.1 g/dL (11.5-14.8); LYMPHOCYTES # (AUTO) 2.7 /CMM (0.8-4.8); LYMPHOCYTES % (AUTO) 8.7 % (20.0-44.0); MEAN CORPUSCULAR HGB CONC 33 g/dl (31.0-36.0); MEAN CORPUSCULAR VOLUME 89 fL (82-100); MONOCYTES # (AUTO) 1.3 /CMM (0.1-1.30); MONOCYTES % (AUTO) 4.2 % (2.0-12.0); NEUTROPHILS # (AUTO) 26.7 /CMM (1.8-8.9); NEUTROPHILS % (AUTO) 86.3 % (43.0-81.0); PLATELET COUNT (AUTO) 428 /CMM (150-450); RED BLOOD CELL COUNT(AUTO) 3.42 MIL/uL (4.0-5.2)
[2018-12-29] MEDS: INSULIN NPH, HUMAN ISOPHANE 100 UNIT/ML VIAL SQ SCH ×2 (06:21→19:02)
--- NOTE | 2018-12-29 08:09 | NUR ---
RT PATIENT REC'D TRACHED ON [facility] VENT WITH ORDERED SETTINGS CHIDI WELL. VENT ALARMS CHECKED + AUDIBLE. CUFF PRESSURE CHECKED GENERAL ENGINEERING TEACHER. PATIENT AIRWAY SUCTIONED AND PATENT. SMALL AMT OF KESSLER SEMITHICK SECRETIONS. B/S DIM COARSE. PATIENT STABLE, NO DISTRESS, NON RESPONSIVE TO COMMANDS. AMBU BAG AT HOB. CONT CURRENT RESP CARE PLAN Addendum: 12/29/18 at 0811 by ELLIOT LEE RT Amended: Links added.
[2018-12-29] MEDS: clonazePAM 1 MG TABLET GT SCH ×3 (08:15→18:50)
[2018-12-29] MEDS: FERROUS SULFATE UDC 300 MG/5 ML UDC GT SCH ×3 (08:16→18:49)
[2018-12-29] MEDS: LEVETIRACETAM SOL (5 ML) 100 MG/ML UDC GT SCH ×2 (08:16→20:10)
[2018-12-29] MEDS: TRAMADOL HCL 50 MG TABLET GT SCH ×3 (08:16→18:50)
[2018-12-29] MEDS: METOPROLOL SUCCINATE 25 MG TAB.SR.24H GT SCH ×2 (08:18→18:50)
[2018-12-29] MEDS: LACTOBACILLUS RHAMNOSUS GG 1 EACH CAP.SPRINK GT SCH ×2 (08:18→18:50)
[2018-12-29] MEDS: FOLIC ACID 1 MG TABLET GT SCH (08:18)
[2018-12-29] MEDS: MULTIVIT W/MINERALS 1 TAB TABLET GT SCH (08:18)
[2018-12-29] MEDS: LOSARTAN POTASSIUM 50 MG TABLET GT SCH (08:19)
[2018-12-29] MEDS: PANTOPRAZOLE 40 MG/PACK PACK GT SCH ×2 (08:20→18:49)
[2018-12-29] MEDS: ASCORBIC ACID 500 MG TABLET GT SCH (08:20)
[2018-12-29] MEDS: CYANOCOBALAMIN 500 MCG TABLET GT SCH (08:20)
[2018-12-29] MEDS: ZINC SULFATE 220 MG CAPSULE GT SCH (08:20)
[2018-12-29] MEDS: PROSOURCE / PROSTAT (PYXIS) 30 ML UDC GT SCH (08:22)
[2018-12-29] MEDS: Z GUARD REMEDY 2 OZ OINT TP SCH (08:23)
[2018-12-29] MEDS: DAKINS QUARTER STRENGTH (0.125%) 480 ML BOTTLE TOP SCH (08:23)
[2018-12-29 08:59] LABS: LYMPHOCYTES % (MANUAL) 9 % (16-48); MONOCYTES % (MANUAL) 5 % (0-11.0); NEUTROPHILS % (MANUAL) 86 (42-76)
[2018-12-29] MEDS ORDERED: VANC125C11 GT (12:09)
[2018-12-29] MEDS: INSULIN REGULAR, HUMAN 100 UNIT/ML 3 ML VIAL SQ PRN (14:37)
--- NOTE | 2018-12-29 15:50 | NUR ---
unable to discharge per transplant case manager [facility]its [facility].
[2018-12-29] MEDS: HYDROCODONE/APAP 5/325MG 1 EACH TABLET GT PRN (20:10)
--- NOTE | 2018-12-29 22:08 | NUR ---
SPOKE TO [facility] ([facility]) RE AMBULANCE TRANSPORT ,SAID SHE GONNA FOLLOW [facility] AND CALL US.
--- NOTE | 2018-12-29 22:46 | NUR ---
TELE-1/HOME ENERGY AUDITOR PT PICKED UP FOR TRANSPORT TO [facility]. VSS.
[2018-12-30] MEDS ORDERED: AMIKACIN 400 MG in IV D5W 100 ML IV SCH (16:00)
== END 2018-12-29 22:51 | DRG 720 ==
LOC: ER 12:02 → TELE1 14:50
PROVIDERS: ADMIT Internal Medicine; ATTEND Internal Medicine
DX: A41.9 Sepsis, unspecified organism (principal); G93.1 Anoxic brain damage, not elsewhere classified; Z99.11 Dependence on respirator [ventilator] status; J95.851 Ventilator associated pneumonia; E46 Unspecified protein-calorie malnutrition; J96.11 Chronic respiratory failure with hypoxia; A04.72 Enterocolitis due to Clostridium difficile, not specified as recurrent; L89.150 Pressure ulcer of sacral region, unstageable; Z93.0 Tracheostomy status; N17.9 Acute kidney failure, unspecified; Z93.1 Gastrostomy status; E87.5 Hyperkalemia; E11.9 Type 2 diabetes mellitus without complications; I10 Essential (primary) hypertension; N39.0 Urinary tract infection, site not specified; D63.8 Anemia in other chronic diseases classified elsewhere; B96.20 Unspecified Escherichia coli [E. coli] as the cause of diseases classified elsewhere; E86.0 Dehydration; B96.1 Klebsiella pneumoniae [K. pneumoniae] as the cause of diseases classified elsewhere; R13.10 Dysphagia, unspecified; Z79.899 Other long term (current) drug therapy; Z86.73 Personal history of transient ischemic attack (TIA), and cerebral infarction without residual deficits; Z79.4 Long term (current) use of insulin
CPT/HCPCS: 31720; 36415; 36569; 71045-TC; 80048-TC; 80053-TC; 80076-TC; 80150; 80202-TC; 81000-TC; 82962-TC; 83605-TC; 84484-TC; 85025-TC; 85730-TC; 86850-TC; 86921-TC; 87040-TC; 87070-TC; 87081-TC; 87086-TC; 87186-TC; 94002-TC; 94003-TC; 94760-TC; 99082-TC; A4216; A4623; A6253; A6402; A6403; A7526; G0378; J0278; J0696; J1644; J1815; J1953; J2185; J2543; J3370; J3490; J7030; J7050; J7060; P9016-BL

== ENCOUNTER 2019-04-11 15:22 | Inpatient (IN) ==
[~2019-04-11] VITALS: Ht 162.6 cm; Wt 61.7 kg
[~2019-04-11 15:22] MED LIST: AMIN30LI27 GT; ARGI1POW13 GT; BLOO-668 IN; CLON1TAB GT; CYAN-24 GT; FERR300L GT; FOLI1TAB16 GT; HEPA50008 SQ; HYDR-4075 GT; INSU100V3 SQ; IPRA3AMP23 IH; LEVE100S GT; LOSA50TA39 GT; MAGN400O6 GT; MULT-447 GT; NA P133E RC; NPH,100V2 SQ; NUT.237L30 GT; OMEP20CA11 GT; SACC250C GT; TRAM50TA2 GT; VANC125C11 GT; VIT500LI GT; ZINC220C8 GT
--- NOTE | 2019-04-11 15:45 | NUR ---
TIERRA Gillis unit 35 from [facility] "Abnormal Labs H/H-06/11, Patient placed on a vent, monitors attached, kept comfortable, no distress noted. Will monitor.
[2019-04-11 15:50] VITALS: BP 133/73
[2019-04-11] MEDS ORDERED: IV NS 0.9% 1,000 ML BAG IV ONE ×2 (16:00→17:00)
--- NOTE | 2019-04-11 16:00 | NUR ---
Patient seen by Dr. Roberts.
[2019-04-11] MEDS ORDERED: AMIK250V8 IV (16:24)
[2019-04-11] MEDS ORDERED: AMIN30LI2 GT (16:24)
[2019-04-11] MEDS ORDERED: BISA10SU11 RC (16:24)
[2019-04-11] MEDS ORDERED: ACET-868 GT (16:24)
[2019-04-11] MEDS ORDERED: EPOE4000 SQ (16:24)
[2019-04-11] MEDS ORDERED: NAPH1POW3 GT (16:24)
[2019-04-11] MEDS ORDERED: INSU100V7 SQ (16:24)
[2019-04-11] MEDS ORDERED: OXYC-128 GT (16:24)
[2019-04-11] MEDS ORDERED: METF500T GT (16:24)
[2019-04-11] MEDS ORDERED: TPN IV (16:24)
[2019-04-11] MEDS ORDERED: ACET-2605 GT (16:24)
[2019-04-11] MEDS ORDERED: INSU100V27 SQ (16:24)
[2019-04-11] MEDS ORDERED: CHLO473M5 MM (16:24)
[2019-04-11 16:41] LABS: BASOPHILS # (AUTO) 0.1 /CMM (0.0-0.2); BASOPHILS % (AUTO) 1.2 % (0.0-2.0); EOSINOPHILS % (AUTO) 8.1 % (0.0-6.0); HEMATOCRIT 22 % (33-45); HEMOGLOBIN 7.2 g/dL (11.5-14.8); LYMPHOCYTES # (AUTO) 2.5 /CMM (0.8-4.8); LYMPHOCYTES % (AUTO) 25.3 % (20.0-44.0); MEAN CORPUSCULAR HGB CONC 34 g/dl (31.0-36.0); MEAN CORPUSCULAR VOLUME 94 fL (82-100); MONOCYTES # (AUTO) 0.5 /CMM (0.1-1.30); MONOCYTES % (AUTO) 5.4 % (2.0-12.0); NEUTROPHILS # (AUTO) 5.9 /CMM (1.8-8.9); PLATELET COUNT (AUTO) 278 /CMM (150-450); RED BLOOD CELL COUNT(AUTO) 2.29 MIL/uL (4.0-5.2); WHITE BLOOD COUNT (AUTO) 9.9 K/uL (4.3-11.0)
[2019-04-11] MEDS ORDERED: CEFTRIAXONE 1GM BAG (ER ONLY) 1 GM/50 ML PIGGYBACK IV ONE (17:00)
[2019-04-11 17:03] LABS: ALANINE AMINOTRANSFERASE 21 U/L (12-78); ALKALINE PHOSPHATASE 309 U/L (46-116); ASPARTATE AMINOTRANSFERASE 23 U/L (15-37); BILIRUBIN,DIRECT 0.1 mg/dL (0.0-0.2); BILIRUBIN,TOTAL 0.2 mg/dL (0.2-1.0); CALCIUM, SERUM 9.7 mg/dL (8.5-10.1); CARBON DIOXIDE 28 mmol/L (21-32); CHLORIDE 112 mmol/L (98-107); CREATININE 1.2 mg/dL (0.6-1.3); GLUCOSE 72 mg/dL (74-106); LIPASE 514 U/L (73-393); SODIUM SERUM 151 mmol/L (136-145); UREA NITROGEN, BLOOD 47 mg/dL (7-18)
[2019-04-11 17:05] LABS: ALBUMIN 1.3 g/dL (3.4-5.0); POTASSIUM 2.7 mmol/L (3.5-5.1)
[2019-04-11] MEDS ORDERED: CEFTRIAXONE 1GM BAG (ER ONLY) 50 ML IV ONE (17:08)
[2019-04-11 17:20] VITALS: BP 126/64
[2019-04-11] MEDS ORDERED: POTASSIUM CHLORIDE 20 MEQ POWDER PACKET ONE (17:27)
[2019-04-11] MEDS ORDERED: POTASSIUM CHLORIDE 20 MEQ TAB.PRT.SR PO ONE (17:30)
[2019-04-11] MEDS ORDERED: POTASSIUM CHLORIDE 20 MEQ POWDER PACKET GT ONE (17:30)
--- NOTE | 2019-04-11 17:38 | NUR ---
ROOM 325-1
--- NOTE | 2019-04-11 18:19 | NUR ---
REPORT GIVEN TO ALFONZO KONG BLOOD TRANSFUSION 1 UNIT, CONSENT RECEIVED VIA TELEPHONE FROM DAUGHTER GWEN BECKETT, WITNESSED BY ANOTHER NURSE. PATIENT'S IV FLUID STILL INFUSING.
--- NOTE | 2019-04-11 19:16 | NUR ---
PATIENT TRANSFERRED TO ROOM 325 VIA ACLS PROTOCOL WITH RT. ENDORSED TO GIVE 1 UNIT OF PRBC.
[2019-04-11 19:30] VITALS: BP 148/79
--- NOTE | 2019-04-11 19:30 | NUR ---
ADMISSION 53 years old female admitted for Anemia. Patient is awake, eyes open, non verbal. Trach intact, on mechanical vent, settings per RT. Skin body assessment done with WILBER Whelan. Wound consult. Admission orders verified with Dr. Callejas. Will transfuse PRBC when available. Maintained safety.
[2019-04-11] MEDS ORDERED: POTASSIUM CHLORIDE 20 MEQ TAB.PRT.SR PO SCH (20:00)
[2019-04-11 20:29] VITALS: BP 148/79
[2019-04-11] MEDS ORDERED: DEXTROSE 50%-WATER 50 ML DISP.SYRIN IV PRN (20:30)
[2019-04-11] MEDS ORDERED: NA PHOS,M-B/NA PHOS,DI-BA 1 EA ENEMA RC PRN (21:00)
[2019-04-11] MEDS ORDERED: TPN/PPN PER PHARMACY XX PRN (21:00)
[2019-04-11] MEDS ORDERED: MISCELLANEOUS MED 1 EA EA GT PRN (21:00)
[2019-04-11] MEDS ORDERED: MISCELLANEOUS MED 1 EA EA BC ONE (21:00)
[2019-04-11] MEDS ORDERED: MISCELLANEOUS MED 1 EA EA XX ONE (21:00)
[2019-04-11] MEDS ORDERED: INSULIN ASPART/LISPRO 100 UNIT/ML CARTRIDGE SQ PRN (21:00)
[2019-04-11] MEDS ORDERED: IV D5/0.45 NACL 1,000 ML IV PRN (21:00)
[2019-04-11] MEDS ORDERED: oxyCODONE/APAP (5/325 MG) 1 UDTAB TABLET GT PRN (21:00)
[2019-04-11] MEDS ORDERED: ACETAMINOPHEN 650 MG/20.3 ML UDC GT PRN (21:00)
[2019-04-11] MEDS ORDERED: AMIKACIN 250 MG/ML VIAL IV SCH (21:00)
[2019-04-11] MEDS ORDERED: BISACODYL SUPP (10 MG) 10 MG/SUPP.RECT SUPP.RECT RC PRN (21:00)
[2019-04-11 21:10] LABS: THYROID STIMULATING HORMONE 4.827 uIU/mL (0.358-3.74)
[2019-04-11] MEDS ORDERED: ALBUTEROL FS 2.5 MG/0.5 ML VIAL.NEB NEB PRN ×2 (21:30)
[2019-04-11] MEDS ORDERED: PHARMACY TO CHANGE PO MEDS TO GT/NG XX PRN (21:30)
[2019-04-11] MEDS ORDERED: IPRATROPIUM NEB FS 0.5 MG/2.5 ML AMPUL.NEB NEB PRN (21:30)
[2019-04-11] MEDS ORDERED: ACETAMINOPHEN ES 500 MG TABLET GT PRN (21:30)
[2019-04-11] MEDS ORDERED: INSULIN GLARGINE, 100 UNIT/ML CARTRIDGE SQ SCH (22:00)
[2019-04-11] MEDS: POTASSIUM CHLORIDE 20 MEQ POWDER PACKET GT SCH (22:20)
[2019-04-11] MEDS: CHLORHEXIDINE GLUCONATE 15 ML UDC MM SCH (22:25)
--- NOTE | 2019-04-11 22:45 | NUR ---
LANTUS INSULIN NON ADMINISTERED FSBS 74 MD/DL.
[2019-04-11] MEDS ORDERED: Sodium Chloride 154 MEQ in IV 10% DEXTROSE 1,000 ML IV PRN (23:00)
[2019-04-11 23:22] VITALS: BP 108/65
--- NOTE | 2019-04-11 23:37 | NUR ---
BLOOD TRANSFUSION VS taken and recorded, First unit PRBC verified with another RN Rhea. Started infusing PRBC first unit, will monitor patient closely.
--- NOTE | 2019-04-11 23:50 | NUR ---
2 UNITS PRBC Patient did not received brood transfusion at the ED prior transfer to unit, clarified order from Dr. Callejas. Total 2 units PRBC to infuse per MD.
[2019-04-11 23:51] VITALS: BP 100/58
--- NOTE | 2019-04-11 23:53 | NUR ---
BLOOD TRANSFUSION VSS, no s/s of bleeding. No moaning, no facial grimace. Will cont to monitor closely.
[2019-04-12] VITALS (11 sets, daily range): BP systolic 90–150; BP diastolic 49–80
[2019-04-12] MEDS ORDERED: BLOOD SUGAR DIAGNOSTIC 1 EACH STRIP IN SCH
[2019-04-12] MEDS: POTASSIUM CHLORIDE 20 MEQ POWDER PACKET GT SCH
[2019-04-12 00:02] LABS: IRON, SERUM 50 ug/dl (50-175); TOTAL IRON BINDING CAPACITY 98 ug/dl (250-450)
[2019-04-12] MEDS: BLOOD SUGAR DIAGNOSTIC 1 EACH STRIP IN SCH ×3 (00:06→12:21)
[2019-04-12] MEDS: INSULIN REGULAR, HUMAN 100 UNIT/ML 3 ML VIAL SQ PRN ×3 (00:07→12:30)
--- NOTE | 2019-04-12 00:23 | NUR ---
BLOOD TRANSFUSION VSS, no s/s of bleeding. No moaning, no facial grimace. Will cont to monitor closely.
[2019-04-12] MEDS: IPRATROPIUM NEB FS 0.5 MG/2.5 ML AMPUL.NEB NEB SCH ×3 (01:02→13:44)
[2019-04-12] MEDS: ALBUTEROL FS 2.5 MG/0.5 ML VIAL.NEB NEB SCH ×3 (01:02→13:44)
--- NOTE | 2019-04-12 01:54 | NUR ---
BLOOD TRANSFUSION END First unit PRBC infused, VSS. Patients appears no pain, no facial grimace, no moaning. No s/s of blood transfusion reaction. Will cont to monitor closely.
--- NOTE | 2019-04-12 02:58 | NUR ---
BLOOD TRANSFUSION VS taken and recorded, 2nd Unit PRBC verified with TOM Wilkerson. Started 2nd unit PRBC infusion, will monitor patient closely.
--- NOTE | 2019-04-12 03:15 | NUR ---
BLOOD TRANSFUSION BP on low's 90. Afebrile, No s/s of bleeding. No moaning, no facial grimace. Will cont to monitor closely.
--- NOTE | 2019-04-12 03:47 | NUR ---
BLOOD TRANSFUSION 2nd unit PRBC still in progress, VSS stable. Patient appears comfortable, no moaning, no facial grimacing. Will cont to monitor closely.
--- NOTE | 2019-04-12 05:03 | NUR ---
BLOOD TRANSFUSION INFUSED 2nd unit PRBC infused, total 2 units PRBC. VS remains stable. Patient is awake, no moaning, no facial grimace. Will cont to monitor closely.
--- NOTE | 2019-04-12 06:29 | NUR ---
CHANGED OF SHIFT REPORT Patient in bed, eyes open, non verbal. Trach intact, on mechanical vent. setting remains the same. Suction secretion PRN, Neb ATC per RT. Currently NPO, on IVF D10 at 75 ml/hr til TPN starts. Urinary ledesma cath. Rectal tube in place, bag off the floor. Post blood transfusion with no adverse symptoms, VSS. Abdomen presence of Gtube, for meds and water flush only. Wound consult for abdomen left quadrant open wound and sacro coccyx decub. SIMA mattress for wound management, will endorse to oncoming RN.
[2019-04-12 06:40] LABS: BASOPHILS # (AUTO) 0.1 /CMM (0.0-0.2); HEMATOCRIT 29 % (33-45); HEMOGLOBIN 9.9 g/dL (11.5-14.8); LYMPHOCYTES # (AUTO) 2.1 /CMM (0.8-4.8); MEAN CORPUSCULAR HGB CONC 34 g/dl (31.0-36.0); MEAN CORPUSCULAR VOLUME 92 fL (82-100); MONOCYTES # (AUTO) 0.8 /CMM (0.1-1.30); MONOCYTES % (AUTO) 8.4 % (2.0-12.0); NEUTROPHILS # (AUTO) 6.3 /CMM (1.8-8.9); NEUTROPHILS % (AUTO) 63.6 % (43.0-81.0); PLATELET COUNT (AUTO) 239 /CMM (150-450); RED BLOOD CELL COUNT(AUTO) 3.14 MIL/uL (4.0-5.2); WHITE BLOOD COUNT (AUTO) 9.9 K/uL (4.3-11.0)
[2019-04-12 07:08] LABS: CALCIUM, SERUM 9.2 mg/dL (8.5-10.1); CREATININE 1.3 mg/dL (0.6-1.3); PHOSPHORUS 2.7 mg/dL (2.5-4.9); POTASSIUM 5.2 mmol/L (3.5-5.1)
--- NOTE | 2019-04-12 07:20 | NUR ---
RN OPENING NOTES PATIENT IN BED, NON VERBAL. OPENS EYES. ON TELE MONITOR, SR. NO SIGNS OF ANY PAIN OR SOB. HAS A FLEXISEAL AND BOATENG CATH. MULTIPLE WOUNDS. NPO. HAS A RIGHT UPPER ARM PICC WITH D10 RUNNING AT 75 ML/HR. WILL STOP WHEN TPN COMES FROM PHARMACY. ALSO HAS LEFT WRIST #24 SALINE LOCKED. S/P BLOOD TRANSFUSION WITH 2 UNITS OF PRBC LAST NIGHT. GTUBE ONLY FOR MEDS. HAS AN ORDER OF WATER FLUSH WITH 200 ML/6 HOURS. STILL WAITING FOR WOUND CONSULT, SPECIAL MATTRESS, SCD MACHINE AND ISOLATION CART.BED LOCKED AND IN LOW POSITION. WILL CONTINUE TO MONITOR PATIENT
[2019-04-12] MEDS ORDERED: ALBUTEROL FS 2.5 MG/0.5 ML VIAL.NEB NEB SCH (07:35)
[2019-04-12] MEDS ORDERED: IV 10% DEXTROSE 1,000 ML IV PRN (08:30)
[2019-04-12] MEDS ORDERED: FEE PK DOSING 1 MIN EA MC ONE (08:48)
[2019-04-12] MEDS: NEUTRA PHOS 1 POWD.PACKET GT SCH ×2 (09:02→16:22)
[2019-04-12] MEDS: CHLORHEXIDINE GLUCONATE 15 ML UDC MM SCH (09:02)
[2019-04-12] MEDS: METFORMIN 500 MG TABLET GT SCH ×2 (09:02→16:21)
--- NOTE | 2019-04-12 09:17 | NUR ---
RN NOTES HAD TO CHANGED DIET TO NPO EXCEPT MEDS FROM NPO SO KITCHEN WILL BRING SOME PROSTAT
[2019-04-12] MEDS: PROSOURCE / PROSTAT (PYXIS) 30 ML UDC GT SCH ×3 (10:45→16:22)
--- NOTE | 2019-04-12 12:03 | NUR ---
RN NOTES CALLED [facility]UL TO GIVE REPORT, TALKED TO TOM BRADY. DAUGHTER ALSO INFORMED THIS AM WHEN SHE CALLED.
[2019-04-12] MEDS ORDERED: AMIKACIN 600 MG in IV D5W 100 ML IV SCH (13:00)
--- NOTE | 2019-04-12 14:02 | NUR ---
RN NOTES LAB CALLED, SPOKE TO ARIEL, AMIKACIN TROUGH WAS 10.8. CALLED PHARMACY, STILL WAITING FOR A CALL BACK Addendum: 04/12/19 at 1506 by GISELLA WOODS RN PHARMACY CHANGED THE AMIKACIN DOSAGE AND TIME. PATIENT SUPPOSED TO GET PICKED UP AT 1400
[2019-04-12] MEDS ORDERED: EPOETIN ALFA (4000 UNIT) 4,000 UNIT/ML VIAL SQ SCH (15:00)
--- NOTE | 2019-04-12 15:43 | NUR ---
RN NOTES CALLED PHARMACY REGARDING EPOGEN. THEY SAID THEY ARE ON THE PROCESS OF BRINGING IT HERE
[2019-04-12] MEDS ORDERED: AMIKACIN 300 MG in IV D5W 100 ML IV SCH (17:00)
--- NOTE | 2019-04-12 17:08 | NUR ---
BOOK CUTTER NOTES PATIENT HAS BEEN PICKED UP BY AMBULANCE PERSONNEL. STABLE VS. NO SIGNS OF ANY PAIN OR DISTRESS. GAS PROVER INFORMED TO SEND COPY OF AMIKACIN TROUGH TO THE FACILITY. ALL MEDS GIVEN. PER CN, NO D/C PICTURES. PATIENT ADMISSION PICTURES WAS TAKEN <24 HOURS AGO.
== END 2019-04-12 17:15 | DRG 425 ==
LOC: ER 15:28 → TELE 18:43
PROVIDERS: ADMIT Internal Medicine; ATTEND Internal Medicine
PROC: 30233N1 Transfusion of Nonautologous Red Blood Cells into Peripheral Vein, Percutaneous Approach (ICD-10-PCS; principal; 2019-04-11)
PROC: 5A1935Z Respiratory Ventilation, Less than 24 Consecutive Hours (ICD-10-PCS; principal; 2019-04-11)
DX: E87.6 Hypokalemia (principal); G93.1 Anoxic brain damage, not elsewhere classified; R40.3 Persistent vegetative state; Z99.11 Dependence on respirator [ventilator] status; J96.11 Chronic respiratory failure with hypoxia; E46 Unspecified protein-calorie malnutrition; Z93.0 Tracheostomy status; D64.9 Anemia, unspecified; M46.28 Osteomyelitis of vertebra, sacral and sacrococcygeal region; I10 Essential (primary) hypertension; Z93.1 Gastrostomy status; E88.09 Other disorders of plasma-protein metabolism, not elsewhere classified; Z79.4 Long term (current) use of insulin; Z79.84 Long term (current) use of oral hypoglycemic drugs; E87.0 Hyperosmolality and hypernatremia; E11.69 Type 2 diabetes mellitus with other specified complication; Z68.23 Body mass index [BMI] 23.0-23.9, adult; L89.90 Pressure ulcer of unspecified site, unspecified stage
CPT/HCPCS: 31720; 36415; 71045-TC; 80048-TC; 80076-TC; 80150; 82150-TC; 82962-TC; 83540-TC; 83605-TC; 83690-TC; 83735-TC; 84100-TC; 84443-TC; 85025-TC; 85730-TC; 86850-TC; 86921-TC; 87081-TC; 94003-TC; 94760-TC; A4216; A6253; A6403; G0378; J0278; J0696; J0885; J1815; J3490; J7030; J7050; J7060; P9016-BL